=== PATIENT | male | born 1965 | race Asian ===

== ENCOUNTER 2023-07-26 06:00 | Day surgery (SDC) | payer MEDICAID ==
[~2023-07-26] VITALS: Ht 165.1 cm; Wt 72.6 kg
[2023-07-26] MEDS ORDERED: ACETAMINOPHEN I.V. 1000 MG 100 ML IV ONE (07:09)
[2023-07-26] MEDS ORDERED: MEPERIDINE HCL/PF 25 MG/ML DISP.SYRIN IVP PRN (08:45)
[2023-07-26] MEDS ORDERED: LABETALOL 100 MG/ 20ML VIAL IVP PRN (08:45)
[2023-07-26] MEDS ORDERED: METOCLOPRAMIDE HCL 10 MG/2 ML VIAL IVP PRN (08:45)
[2023-07-26] MEDS ORDERED: MIDAZOLAM HCL 2 MG/2 ML VIAL (VERSED) IVP PRN (08:45)
[2023-07-26] MEDS ORDERED: HYDROmorphone 1 MG/ML INJ. CARTRIDGE IVP PRN ×2 (08:45)
[2023-07-26] MEDS ORDERED: hydrALAZINE HCL 20 MG/ML VIAL IVP PRN (08:45)
[2023-07-26] MEDS ORDERED: LR 1,000 ML IV SCH (08:45)
[2023-07-26 08:58] VITALS: O2SAT 99
[2023-07-26] MEDS ORDERED: MUPIROCIN 2% TOPICAL OINTMENT 22 GM ONE (10:10)
[2023-07-26] MEDS ORDERED: NS 1000 ML IV.SOLN IV ONE (10:10)
[2023-07-26] MEDS ORDERED: LIDOCAINE 2%, 20 ML MDV ONE (10:10)
[2023-07-26] MEDS ORDERED: DESFLURANE 15 MIN GAS INH ONE (10:10)
[2023-07-26] MEDS ORDERED: ONDANSETRON HCL 4 MG/2 ML VIAL ONE (10:10)
[2023-07-26] MEDS ORDERED: LIDOCAINE/EPI 1% 1:100000 20 ML VIAL ONE (10:10)
[2023-07-26] MEDS ORDERED: MIDAZOLAM HCL 5 MG/ML VIAL (VERSED) IV ONE (10:10)
[2023-07-26] MEDS ORDERED: LR 1,000 ML IV.SOLN IV ONE (10:10)
[2023-07-26] MEDS ORDERED: PHENYLEPHRINE HCL 10 MG/ML VIAL (NEOSYNEPHRINE) ONE (10:10)
[2023-07-26] MEDS ORDERED: ROCURONIUM BROMIDE 10 MG/ML (ZEMURON) ONE (10:10)
[2023-07-26] MEDS ORDERED: PROPOFOL 200MG/ 20ML VIAL (DIPRIVAN) IV ONE (10:10)
[2023-07-26] MEDS ORDERED: OXYMETAZOLINE HCL 0.05% NASAL SPRAY NS ONE (10:10)
[2023-07-26] MEDS ORDERED: WATER FOR IRRIGATION,STERILE 1,000 ML IRRIG.SOLN IR ONE (10:10)
[2023-07-26] MEDS ORDERED: NS IRRIG SOLN 1000 ML IR ONE (10:10)
[2023-07-26] MEDS ORDERED: DEXAMETHASONE SOD PHOSPHATE 4 MG/ML VIAL ONE (10:10)
[2023-07-26] MEDS ORDERED: fentaNYL CITRATE/PF 100 MCG/2 ML AMP ONE (10:10)
[2023-07-26] MEDS ORDERED: SUGAMMADEX SODIUM 200 MG/2 ML VIAL IV ONE (10:10)
[2023-07-26] MEDS ORDERED: EPINEPHrine HCL 1 MG/ML VIAL ONE (10:10)
[2023-07-26 12:50] VITALS: BP_SYST 116; PULSE 82; RESP 20
== END 2023-07-26 13:59 | disposition home or self-care (01) ==
LOC: SMU 06:00 → SDS 06:00
PROVIDERS: ATTEND Otolaryngology
DX: D38.5 Neoplasm of uncertain behavior of other respiratory organs (principal); I10 Essential (primary) hypertension; E11.9 Type 2 diabetes mellitus without complications; E78.5 Hyperlipidemia, unspecified; K21.9 Gastro-esophageal reflux disease without esophagitis; E66.3 Overweight; J30.1 Allergic rhinitis due to pollen; H61.23 Impacted cerumen, bilateral; Z79.899 Other long term (current) drug therapy
CPT/HCPCS: 82948; 88304; 88305; 88311; 30140; 30520; 31255; 31298; 31256; J3490; J1100; J0171; J2250; J2405; J2370; J2704; J3010; J7120; J7030; C1726; J0131; J2001